=== PATIENT | male | born 2000 | race Caucasian/White ===

== ENCOUNTER 2025-07-07 05:03 | Emergency (ER) | payer OTHER, SELFPAY ==
--- NOTE | ~2025-07-07 | XR_ITS ---
Examination: XR shoulder LT min 2V Clinical History: shoulder pain Comparison: None Technique: 4 views left shoulder Findings/impression: 1. No fracture or dislocation left shoulder. Reviewed, dictated and finalized at location R. N[facility] INTERN
[2025-07-07 05:10] VITALS: BP 166/106; PULSE 70; RESP 14; O2SAT 100
--- NOTE | 2025-07-07 05:14 | ED_ITS ---
HPI - Extremity Injury (Upper) General Chief Complaint: Extremity Injury, Upper Stated Complaint: I think my shoulder is broken Time Seen by Provider: 07/07/25 05:07 History of Present Illness HPI narrative: 24-year-old otherwise healthy male presenting with left shoulder pain after in juring it during wrestling practice yesterday. Patient states he was slammed onto his left side by heavy or gentleman and then having pain afterwards. Pain worsening this morning with some limited mobility with flexion forward and abduction laterally. No paresthesias or difficulty ranging the fingers, elbow or wrist. States that the pain starts sharply above 90? abduction and forward flexion and mostly localized to his posterior lateral AC joint. No clavicular pain or chest pain. No ribcage pain or any difficulty in breathing. No numbness or tingling or weakness. Related Data Allergies Allergy/AdvReac Type Severity Reaction Status Date / Time No Known Allergies Allergy Mild Verified 07/07/25 05:19 Review of Systems Review of Systems: As reviewed above in [facility]PI [facility] Family History Family History Mother Migraine Social History Social History Smoking status: Never smoker Alcohol intake: never Substance use: never Substance use type: does not use Living arrangements: with family Occupation/Education: occupation Gender identity (if verbalized by the patient): Male Exam Narrative: GENERAL: [Well-appearing, well-nourished, and in no acute distress.] HEAD: [Normocephalic, atraumatic.] EYES: [PERRLA and EOMI.] ENT: Nares clear, no rhinorrhea or epistaxis. Mucous membranes moist. NECK: Supple. CHEST: No respiratory distress. HEART: 2+ radial pulse and warm extremity ABDOMEN: [Soft, nondistended], [nontender], [No rigidity or guarding] EXTREMITIES: Limited forward flexion and abduction of the left upper extremity at the shoulder secondary to pain. Passive range of motion is full but also elicits pain above 90?. Elbow flexion and extension full without pain. Commutator Inspector strength full. Able to oppose each digit. No paresthesias or numbness in the extremity. Resistance against abduction and adduction elicits pain in the posterior lateral shoulder. SKIN: Warm, dry, no rash. NEURO: [No focal deficits]. Alert and oriented [x3.] PSYCH: [Normal mood and affect.] Course Vital Signs Vital signs: Vital Signs Pulse Rate 70 07/07/25 05:10 Respiratory Rate 14 07/07/25 05:10 Blood Pressure 166/106 H 07/07/25 05:10 Pulse Oximetry 100 07/07/25 05:10 Oxygen Delivery Room Air 07/07/25 05:10 Pulse Rate 70 07/07/25 05:10 Respiratory Rate 14 07/07/25 05:10 Blood Pressure 166/106 H 07/07/25 05:10 Pulse Oximetry 100 07/07/25 05:10 Oxygen Delivery Room Air 07/07/25 05:10 MDM - Extremity Injury (Upper) MDM Narrative Medical decision making narrative: 24-year-old otherwise healthy male presenting with left shoulder pain after injuring it during wrestling practice yesterday. Patient states he was slammed onto his left side by heavy or gentleman and then having pain afterwards. Pain worsening this morning with some limited mobility with flexion forward and abduction laterally. No paresthesias or difficulty ranging the fingers, elbow or wrist. States that the pain starts sharply above 90? abduction and forward flexion and mostly localized to his posterior lateral AC joint. No clavicular pain or chest pain. No ribcage pain or any difficulty in breathing. No numbness or tingling or weakness. Limited forward flexion and abduction of the left upper extremity at the shoulder secondary to pain. Passive range of motion is full but also elicits pain above 90?. Elbow flexion and extension full without pain. Commutator Inspector strength full. Able to oppose each digit. No paresthesias or numbness in the extremity. Resistance against abduction and adduction elicits pain in the posterior lateral shoulder. Patient is hemodynamically stable. Only took an aspirin at home for symptoms but no significant relief. Given Toradol, Robaxin and Tylenol here. X-rays obtained to rule out fracture dislocation but most likely shoulder/rotator cuff sprain. Normal xrays, will be placed into a sling for comfort and will be given follow- up with orthopedics. Medical Records Attestation: I reviewed the patient's medical records. Imaging Data Attestation: I personally reviewed and interpreted this imaging study as follows: My impression: No fracture/dislocation Discharge Plan Discharge Clinical Impression: Sprain of left shoulder Patient Disposition: Home Condition: Stable Instructions: Antibiotic Form, Shoulder Sprain (ED), Shoulder Pain (ED) Additional Instructions: Follow-up with orthopedics on outpatient basis. No fractures/dislocations, likely sprain or rotator cuff injury. We have prescribed you Tylenol, Robaxin, and ibuprofen as well as lidocaine patches for pain control. Return with any emergencies. Patient Language: Marshallese Prescriptions: New ibuprofen 800 mg tablet 800 mg PO TID PRN (Reason: pain) Qty: 30 0RF acetaminophen [Tylenol Extra Strength] 500 mg tablet 1,000 mg PO TID PRN (Reason: pain) Qty: 30 0RF methocarbamol 750 mg tablet 750 mg PO TID PRN (Reason: pain) Qty: 20 0RF lidocaine 5 % adhesive patch,medicated 1 patch topical DAILY Qty: 15 0RF Rx Instructions: leave on most painful area for up to 12 hrs Follow-up/Referrals: PHYSICIAN,MANAGER BUSINESS INFORMATION [Primary Care Provider, Internal Medicine] Narendra Jenkins MD [Physician, Orthopedics] - 1 Week Referral Note: Suspect rotator cuff injury versus sprain Time of Disposition: 05:53
[2025-07-07] MEDS: ACETAMINOPHEN 500 MG TABLET 1000 MG PO (05:23)
[2025-07-07] MEDS: KETOROLAC 10 MG TABLET PO (05:24)
--- NOTE | 2025-07-07 05:52 | PC.NURSE ---
Pt returned from xray at this time. Pt in left arm sling.
== END 2025-07-07 06:01 | disposition home or self-care (01) ==
LOC: ANHED 05:27
PROVIDERS: Emergency Provider Student in an Organized Health Care Education/Training Program
DX: S43.402A Unspecified sprain of left shoulder joint, initial encounter (principal); W03.XXXA Other fall on same level due to collision with another person, initial encounter
CPT/HCPCS: 73030; 99283; A4565; A9270